=== PATIENT | female | born 1980 | race American Indian/Alaskan Native ===

== ENCOUNTER 2019-06-12 03:19 | Emergency (ER) | payer OTHER ==
[~2019-06-12] VITALS: Ht 154.9 cm; Wt 63.5 kg
[~2019-06-12 03:19] MED LIST: CATAFLAM50 MG PO; PEPCID40 MG PO; ZOFRAN4 MG PO
[2019-06-12] MEDS ORDERED: HYDROCHLOROTHIA25 MG (03:39)
[2019-06-12] MEDS ORDERED: NORVASC10 MG (03:43)
[2019-06-12] MEDS ORDERED: HYDROCHLOROTH12.5 MG PO (10:32)
[2019-06-12] MEDS ORDERED: NORVASC10 MG PO (10:32)
[2019-06-12] MEDS ORDERED: MIRALAX510 GM PO (10:32)
== END 2019-06-12 10:39 | disposition home or self-care (01) ==
LOC: ER 03:19 → CPU-OBS 03:22 → ER 10:39
DX: R07.89 Other chest pain (principal); K59.09 Other constipation; R10.12 Left upper quadrant pain
CPT/HCPCS: G0378; G0379; 93005

== ENCOUNTER 2020-04-21 07:15 | Inpatient (IN) | payer OTHER ==
[~2020-04-21] VITALS: Ht 154.9 cm; Wt 70.3 kg
[~2020-04-21 07:15] MED LIST changes: +HYDROCHLOROTH12.5 MG PO; +HYDROCHLOROTHIA25 MG; +MIRALAX510 GM PO; +NORVASC10 MG; +NORVASC10 MG PO
[2020-04-21] MEDS ORDERED: COZAAR25 MG PO (11:05)
[2020-06-07] MEDS ORDERED: PROFERRIN-FORT1 EACH PO (12:52)
[2020-06-07] MEDS ORDERED: AUGMENTIN125 MG/5 M PO (12:53)
== END 2020-05-28 12:50 | disposition home or self-care (01) | DRG 742 ==
LOC: SURH 04-26 07:15 → O/R 04-26 07:15 → SURH 04-26 20:15 → OB/GYN 05-24 10:10 → O/R 05-24 10:10 → OB/GYN 05-24 19:21 → SURH 05-24 19:30 → OB/GYN 05-28 12:50
PROVIDERS: ADMIT Obstetrics & Gynecology; ATTEND Obstetrics & Gynecology
PROC: 0UB90ZZ Excision of Uterus, Open Approach (ICD-10-PCS; principal; 2020-05-24 19:30)
PROC: 3E0F7GC Introduction of Other Therapeutic Substance into Respiratory Tract, Via Natural or Artificial Opening (ICD-10-PCS; 2020-05-25)
DX: D25.9 Leiomyoma of uterus, unspecified (principal); J15.7 Pneumonia due to Mycoplasma pneumoniae; Z20.828 Contact with and (suspected) exposure to other viral communicable diseases